=== PATIENT | male | born 1960 | race Caucasian/White ===

== ENCOUNTER 2018-01-19 06:38 | Day surgery (SDC) | payer OTHER ==
[2018-01-19] MEDS ORDERED: LIDOCAINE 2% (SDV) 5 ML INJ (07:25)
[2018-01-19] MEDS ORDERED: PROPOFOL 40 ML (07:25)
[2018-01-19] MEDS ORDERED: PHENYLephrine (100 MCG/ML) 5ML SYG (07:26)
== END 2018-01-19 10:03 | disposition home or self-care (01) ==
LOC: GIL 06:38
DX: D12.5 Benign neoplasm of sigmoid colon (principal); E11.9 Type 2 diabetes mellitus without complications; I10 Essential (primary) hypertension
CPT/HCPCS: 45380; 82962; 88305